=== PATIENT | female | born 1960 | race Hispanic/Latino ===

== ENCOUNTER 2018-07-24 09:14 | Emergency (ER) | payer OTHER ==
[~2018-07-24] VITALS: Ht 160 cm; Wt 69.9 kg
[2018-07-24] MEDS ORDERED: HYDROCODONE/APAP 5MG-325MG TAB PO ONE (10:00)
[2018-07-24] MEDS ORDERED: TETANUS/DIPHTHERIA TOX ADULT 0.5 ML SYR IM NR (10:30)
--- NOTE | 2018-07-24 10:56 | Diagnostic Imaging Report ---
EXAMINATION: Head CT without contrast. HISTORY: Status post fall, head trauma, headache wording, pain COMPARISON: None. TECHNIQUE: Multidetector axial images were obtained without contrast from the foramen magnum to the vertex . The images were reconstructed using brain and bone algorithms. Thin section brain images were reformatted into coronal and sagittal planes. Image quality: Motion/streaking artifact limits the evaluation of the skull base and posterior cranial fossa. Dose modulation, iterative reconstruction, and/or weight based adjustment of the mA/kV was utilized to reduce the radiation dose to as low as reasonably achievable. FINDINGS: Parenchyma: 1. No abnormal densities. 2. No mass or hemorrhage. No CT evidence of acute territorial vascular insult. Extra-axial spaces:No abnormal density. No extra-axial fluid collections Brain volume: Normal for age. Ventricles: No hydrocephalus or displacement. Arteries: No density suggestive of thrombus. Dural sinuses: No abnormal density. Extra-axial spaces: No abnormal density. Foramen magnum: No mass, Chiari malformation, or basilar invagination. Sella: No obvious mass. Paranasal/mastoid sinuses: Imaged portions unremarkable. Skull/Scalp: No lytic or blastic lesions. Left forehead soft tissue swelling without underlying fractures.. IMPRESSION: 1. No acute post traumatic intracranial abnormalities, particularly no hemorrhage. 2. Left forehead soft tissue swelling without underlying fractures. Signed by: Dr. Santa Mariee M.D. on 07/24/2018 10:53 AM
[2018-07-24] MEDS ORDERED: IBUPROFEN 600 MG TAB PO STA (12:15)
[2018-07-24] MEDS ORDERED: NEOMYCIN/POLYMYX/BACITR OINT 0.9 GM PKT TOP ONE (12:15)
[2018-07-24 12:18] VITALS: BP 167/92
== END 2018-07-24 12:30 | disposition home or self-care (01) ==
LOC: ER 09:14
DX: S00.83XA Contusion of other part of head, initial encounter (principal); G44.311 Acute post-traumatic headache, intractable; W01.0XXA Fall on same level from slipping, tripping and stumbling without subsequent striking against object, initial encounter; Y92.008 Other place in unspecified non-institutional (private) residence as the place of occurrence of the external cause
CPT/HCPCS: 70450; 90471; 90714; 99283

== ENCOUNTER → 2018-08-30 | Outpatient (CLI) | payer OTHER ==
--- NOTE | 2018-09-19 08:48 | Diagnostic Imaging Report ---
#[id number] - MGSCRBIL #BILATERAL DIGITAL SCREENING MAMMOGRAM WITH CAD: 08/30/2018 CLINICAL: Routine screening. Comparison is made to exams dated: 03/20/2009 mammogram, 04/21/2009 mammogram and 04/09/2009 mammogram - [facility]. Current study contains 6 films. There are scattered fibroglandular elements in both breasts. Current study was also evaluated with a Computer Aided Detection (CAD) system. Surgical scar on the right breast and previous clip from a stereo biopsy has been removed. There is tissue distortion present on the right. Scattered calcifications in the left breast. There is an amorphous calcification in the right breast at 1 o'clock posterior depth. No other significant masses, calcifications, or other findings are seen in either breast. IMPRESSION: INCOMPLETE: NEEDS ADDITIONAL IMAGING EVALUATION The amorphous calcification in the right breast is indeterminate. Magnification views are recommended. The patient will be contacted by the Mammography Department to schedule this appointment. Jelani Gallagher Jr., D.O. cw/:09/15/2018 14:54:03 Bar And Filler Assembler: Radha SON(Caridad)(M), [facility] letter sent: Additional Imaging Needed Mammogram BI-RADS: 0 Indeterminate
== END ==
LOC: MAMMO 14:51
PROVIDERS: ATTEND Internal Medicine
DX: Z12.31 Encounter for screening mammogram for malignant neoplasm of breast (principal)
CPT/HCPCS: 77067

== ENCOUNTER → 2018-09-22 | Outpatient (CLI) | payer OTHER ==
--- NOTE | 2018-09-22 16:23 | Diagnostic Imaging Report ---
#[id number] - MGDXRT #UNILATERAL RIGHT DIGITAL DIAGNOSTIC MAMMOGRAM WITH CAD: 09/22/2018 Comparison is made to exams dated: 08/30/2018 mammogram - [facility], 04/21/2009 mammogram, 04/09/2009 mammogram and 03/20/2009 mammogram - [facility]. Current study contains 4 films. There are scattered fibroglandular elements in the right breast. Current study was also evaluated with a Computer Aided Detection (CAD) system. There is a heterogeneous calcification in the right breast at 1 o'clock middle-posterior depth. These calcifications are new compared to the 2008 study and are somewhat suspicious for malignancy. No other significant masses or calcifications are seen in the breast. IMPRESSION: SUSPICIOUS OF MALIGNANCY The heterogeneous calcification in the right breast is at a moderate suspicion for malignancy. A stereotactic biopsy is recommended. A phone call was made to the physician's office and the case discussed with Radha in Dr. Cerrato's office. The patient was informed of these findings and the need for a biopsy. Jelani Gallagher Jr., D.O. cw/:09/22/2018 14:34:48 Lapper: Radha SON(Caridad)(M), [facility] letter sent: Abnormal Exam Mammogram BI-RADS: 4c Suspicious abnormality - moderate concern but not classic for malignancy
== END ==
LOC: MAMMO 08:37
PROVIDERS: ATTEND Internal Medicine
DX: N64.59 Other signs and symptoms in breast (principal)